=== PATIENT | female | born 1940 | race Caucasian/White ===

== ENCOUNTER 2017-11-10 07:21 | Day surgery (SDC) | payer OTHER ==
--- NOTE | 2017-11-08 17:05 | RAD REPORT ---
EXAM DESCRIPTION: Alexandra Cummings (2 Views)11/08/2017 4:39 pm CLINICAL HISTORY: Hypertension/preop COMPARISON: July 2017 FINDINGS: A small right lung granuloma is present. The lungs appear clear of acute infiltrate. The heart is mildly enlarged IMPRESSION: No acute abnormalities displayed
[2017-11-08 17:59] LABS: Potassium 4.1 mEq/L (3.6-5.0)
[2017-11-08 18:00] LABS: Protime INR 1.27
[2017-11-08 18:58] LABS: Absolute Lymphocytes (CBC) 1.2 K/uL (0.7-4.9); Absolute Monocytes 0.8 K/uL (0.1-1.3); Absolute Neutrophil 9.8 K/uL (1.8-8.0); Basophils % 0.7 % (0-1.3); Eosinophils % 1.6 % (0-4.4); Hematocrit 36.2 % (36.0-45.0); Lymphocytes % 9.5 % (15.3-44.8); MCH 34.3 pg (27.0-35.0); MCV 102.5 fL (80-100); MPV 8.1 fL (7.6-11.3); RBC Red Blood Cell Count 3.53 M/uL (3.86-4.86)
[2017-11-08 21:04] LABS: Blood Morphology Comment NOT SEEN (NOT SEEN); Platelet Estimate ADEQ; Urine White Blood Cell Casts OK
[2017-11-10] MEDS ORDERED: NA CHLORIDE 0.9% 500 ML ONE (07:51)
[2017-11-10] MEDS ORDERED: FENTANYL CITR 100 MCG/2 ML ONE (11:02)
[2017-11-10] MEDS ORDERED: MIDAZOLAM HCL 2 MG/2 ML INJ ONE (11:02)
[2017-11-10] MEDS ORDERED: NA CHLORIDE 0.9% 50 ML ONE (11:02)
[2017-11-10] MEDS ORDERED: ATROPINE SULF 1 MG/10 ML SYR IV ONE (11:02)
[2017-11-10] MEDS ORDERED: ASPIRIN 325 MG TAB ONE (11:48)
[2017-11-10] MEDS ORDERED: PRASUGREL (EFFIENT) 10 MG TAB ONE (11:55)
[2017-11-10] MEDS ORDERED: NITROGLYCERIN 0.4 MG/TAB SL PRN (14:00)
[2017-11-10] MEDS ORDERED: NA CHLORIDE 0.9% 1,000 ML IV SCH (14:00)
[2017-11-10] MEDS ORDERED: ACETAMINOPHEN 325 MG TABLET PO PRN (14:00)
[2017-11-10 16:48] VITALS: BMI 32.3
[2017-11-10] MEDS ORDERED: METOPROLOL TAR 50 MG TAB PO ONE (18:40)
[2017-11-10] MEDS ORDERED: ATORVASTATIN 20 MG TAB PO SCH (21:00)
--- NOTE | 2017-11-10 21:44 | OP ---
Date of Procedure: 11/10/2017 Surgeon: Anthony Shaver MD Professor Of Biostatistics: Destiny Swain. Procedures: Left heart catheterization, selective coronary arteriogram, left ventriculogram, angiopl asty, and stent of the first OM. Indication: Unstable angina and coronary artery disease. Description Of Procedure: Ms. Rios is a 77-year-old woman with history of abdominal aortic aneurysm endograft, CAD, dyslipidemia, hypertension, admitted for unstable angina as an outpatient for a vania terization. A 6-Ind[place] sheath was introduced in the right common femoral artery. Angio-Seal was use d to close the case. Blood vessels were tortuous in the iliacs. There was evidence of aortobifemora l endograft, which appears to be patent. Angiography of the right coronary artery revealed a very sm all atretic vessel that is nondominant. LAD was normal. Circumflex was unremarkable, but the first OM had a 90% proximal stenosis. An XB3.5 with side-hole guide was used. A [place] wire 0.014 was use d to cross the lesion. We had to pre-dilate with a 2.25 Emerge x 12 at 12 atmospheres for 30 seconds . Then, we deployed a 2.25 x 12 Synergy with 0% residuals. Complications: None. Blood Loss: 5 cc. Anesthesia: Conscious sedation was 45 minutes. Postoperative Diagnosis: Coronary artery disease, status post successful angioplasty and stent of th e first OM. Plan: The patient was given Angiomax. She will be given Eliquis and aspirin as well. She will be k ept overnight and sent home tomorrow. [employer] Developer: Myke Borges/MAURICIO Voice ID: [id number] Report ID: [id number]
[2017-11-11 02:02] VITALS: O2SAT 98
[2017-11-11] MEDS ORDERED: METOPROLOL TAR 25 MG TAB PO SCH (06:00)
[2017-11-11 06:18] LABS: Absolute Lymphocytes (CBC) 1.3 K/uL (0.7-4.9); Absolute Monocytes 0.9 K/uL (0.1-1.3); Absolute Neutrophil 9.5 K/uL (1.8-8.0); Basophils % 0.7 % (0-1.3); Eosinophils % 1.8 % (0-4.4); Hematocrit 31.5 % (36.0-45.0); Lymphocytes % 10.5 % (15.3-44.8); MCH 34.2 pg (27.0-35.0); MCV 102.5 fL (80-100); MPV 7.7 fL (7.6-11.3); Monocytes % 7.6 % (3.3-12.3); RBC Red Blood Cell Count 3.07 M/uL (3.86-4.86)
[2017-11-11 06:22] LABS: Potassium 3.7 mEq/L (3.6-5.0)
[2017-11-11 07:25] LABS: Blood Morphology Comment NOT SEEN (NOT SEEN); Platelet Estimate ADEQ
[2017-11-11 07:27] LABS: Urine White Blood Cell Casts OK
--- NOTE | 2017-11-11 07:59 | EKG ---
Test Date: 2017-11-11 Test Time: 07:35:38 Engineering Laboratory Technician: TRISTA MEASUREMENT RESULTS: Intervals: Rate: 98 ND: QRSD: 78 QT: 360 QTc: 459 [place]: P: ND: QRS: 36 T: 108 INTERPRETIVE STATEMENTS: Atrial fibrillation Nonspecific ST and T wave abnormality, probably digitalis effect Abnormal ECG Compared to ECG 05/27/2015 11:16:50 Sinus rhythm no longer present Fusion complex(es) no longer present ST (T wave) deviation still present Electronically Signed On 11-11-17 07:58:51 CDT by Xavier Hale
[2017-11-11] MEDS ORDERED: ASPIRIN 81 MG CHEWABLE TABLET PO SCH (09:00)
[2017-11-11] MEDS ORDERED: PRASUGREL (EFFIENT) 10 MG TAB PO SCH (09:00)
[2017-11-11 10:44] VITALS: BP 117/94; TEMP 97.8
--- NOTE | 2017-11-11 11:35 | PN ---
Identification: A 77-year-old woman. Subjective: Ms. Rios is stable following a coronary artery stent. She will be discharged taking Top rol-XL 25 once a day, aspirin 81 mg once a day, Effient 10 mg once a day, Xarelto 10 mg once a day, a nd Lipitor 20 mg once a day. She also takes several respiratory treatments including Spiriva and alb uterol. Her followup will be with Dr. Shaver in 2 weeks. RICHMOND/MAURICIO Voice ID: [id number] Report ID: [id number]
== END 2017-11-11 11:47 | disposition home or self-care (01) ==
LOC: CCL 07:21 → 4TH 12:14 → CCL 11-11 11:47
DX: I25.110 Atherosclerotic heart disease of native coronary artery with unstable angina pectoris (principal); I71.4 Abdominal aortic aneurysm, without rupture; I11.0 Hypertensive heart disease with heart failure; I50.32 Chronic diastolic (congestive) heart failure; I48.91 Unspecified atrial fibrillation; J44.9 Chronic obstructive pulmonary disease, unspecified; E78.5 Hyperlipidemia, unspecified; Z79.01 Long term (current) use of anticoagulants; Z87.891 Personal history of nicotine dependence; Z82.3 Family history of stroke; Z82.49 Family history of ischemic heart disease and other diseases of the circulatory system
CPT/HCPCS: 36415 ×2; 71046; 80048 ×2; 80061; 85025 ×2; 85347 ×3; 85610; 85730; 93005; 93458; C1725; C1760; C1893; C9600; J0583; J2250; J3010